=== PATIENT | female | born 1970 | race Caucasian/White ===

== ENCOUNTER 2024-02-16 15:53 | Emergency (ER) | payer BC ==
[2024-02-16 16:41] VITALS: RESP 18; TEMP 97.4; BMI 30.5
[2024-02-16 17:06] LABS: BASO % 0.6 % (0-2.0); EOS % 1.4 % (0-4.5); HEMOGLOBIN 12.9 GM/dL (10.7-15.3); LYMPH % 24.6 % (8-40); MCH 28.4 pg (25.7-33.7); MCHC 33.8 g/dl (32.0-36.0); MEAN CELL VOLUME 83.9 fl (80-96); MEAN PLT VOLUME 9.2 fl (7.5-11.1); MONO % 5.6 % (3.8-10.2); NEUT % 67.8 % (42.8-82.8); PLATELET COUNT 273 10^3/uL (134-434); RBC 4.53 M/mm3 (3.60-5.2); RDW 14.1 % (11.6-15.6); WHITE BLOOD COUNT 8.4 K/mm3 (4.0-10.0)
[2024-02-16 17:14] LABS: INR 1.09 (0.83-1.09); PROTHROMBIN TIME (PATIENT) 12.5 SEC (9.7-13.0)
[2024-02-16 17:17] LABS: ACTIVATED PTT 28.2 SECONDS (25.2-36.5)
[2024-02-16 17:23] LABS: POTASSIUM 4.3 mmol/L (3.5-5.1)
[2024-02-16 17:24] LABS: CALCIUM 9.3 mg/dL (8.5-10.1)
[2024-02-16 17:25] LABS: ALBUMIN 3.6 g/dl (3.4-5.0)
[2024-02-16] MEDS ORDERED: ACETAMINOPHEN INJECTION 100 ML ONE (17:25)
[2024-02-16 17:26] LABS: BLOOD UREA NITROGEN 18.7 mg/dL (7-18)
[2024-02-16 17:28] LABS: CREATININE 1.2 mg/dL (0.55-1.3)
[2024-02-16 17:31] LABS: BILIRUBIN,TOTAL 0.4 mg/dL (0.2-1)
[2024-02-16] MEDS: ACETAMINOPHEN 1000 MG/100 ML BAG IVPB ONE (17:33)
[2024-02-16] MEDS: SODIUM CHLORIDE 0.9% 500 ML INFUS.BAG IV ONE (17:57)
[2024-02-16 19:03] VITALS: BP 138/75; PULSE 83
== END 2024-02-16 20:14 | disposition home or self-care (01) ==
LOC: JER 15:53
PROC: 3E033NZ Introduction of Analgesics, Hypnotics, Sedatives into Peripheral Vein, Percutaneous Approach (ICD-10-PCS; principal; 2024-02-16)
DX: R55 Syncope and collapse (principal); R42 Dizziness and giddiness; R11.0 Nausea; Z20.822 Contact with and (suspected) exposure to COVID-19
CPT/HCPCS: 0241U-QW; 36415; 70450-TC; 70496-TC; 80053; 80061; 80307; 82550; 82962; 83036; 84484; 85025; 85610; 85730; 86850; 86870; 86880; 86900; 86901; 86902; 93005; 93010; 99285-25; J0131; Q9967